=== PATIENT | female | born 1990 | race Caucasian/White ===

== ENCOUNTER 2020-03-12 16:35 | Emergency (ER) | payer MEDICAID ==
[~2020-03-12] VITALS: Ht 154.9 cm; Wt 86.2 kg
[2020-03-12 16:42] VITALS: BP_SYST 118
[2020-03-12] MEDS ORDERED: fentaNYL CITRATE/PF 100 MCG/2 ML AMP IM ONE (17:30)
--- NOTE | 2020-03-12 17:30 | NUR ---
pt to room 5, placed in [facility].
--- NOTE | 2020-03-12 17:32 | NUR ---
LINDSEY Portillo at bedside examining patient.
--- NOTE | 2020-03-12 17:38 | NUR ---
Pt in [facility] with side rails up. C/O severe pain to lower back. Medicated as ordered. Boyfriend will come and drive patient home, per pt.
[2020-03-12] MEDS ORDERED: KETOROLAC TROMETHAMINE 30 MG VIAL IM ONE (18:15)
[2020-03-12 18:39] VITALS: BP_SYST 118
--- NOTE | 2020-03-12 18:39 | NUR ---
Patient given written and verbal discharge instructions and verbalizes understanding. ER MD discussed with patient the results and treatment provided. Patient in stable condition. ID arm band removed. Patient educated on pain management and to follow up with PMD. Pain Scale 2/10. Opportunity for questions provided and answered. Medication side effect fact sheet provided.
== END 2020-03-12 18:39 | disposition home or self-care (01) ==
LOC: SED 16:35
DX: G89.29 Other chronic pain (principal); M54.5 Low back pain; Z88.2 Allergy status to sulfonamides
CPT/HCPCS: 96372; 99284; J1885; J3010

== ENCOUNTER 2020-07-29 13:34 | Emergency (ER) | payer MEDICAID ==
[~2020-07-29] VITALS: Ht 157.5 cm; Wt 84.8 kg
[2020-07-29 13:53] VITALS: BP_SYST 128
[2020-07-29] MEDS ORDERED: KETOROLAC TROMETHAMINE 60 MG/2 ML VIAL IM ONE ×2 (14:59→15:00)
[2020-07-29] MEDS ORDERED: HYDROcodone/ACETAMIN 5-325 MG TAB (NORCO/ VICODIN) PO ONE (15:00)
[2020-07-29] MEDS ORDERED: IBUP-1969 PO (15:47)
[2020-07-29 15:57] VITALS: BP_SYST 120
[2020-07-30] MEDS ORDERED: LIDOCAINE PATCH 5% 1 EA TP SCH (09:00)
== END 2020-07-29 15:53 | disposition home or self-care (01) ==
LOC: SED 13:34
DX: S39.012A Strain of muscle, fascia and tendon of lower back, initial encounter (principal); Z88.2 Allergy status to sulfonamides; X50.9XXA Other and unspecified overexertion or strenuous movements or postures, initial encounter; Y93.89 Activity, other specified; Y92.89 Other specified places as the place of occurrence of the external cause; Y99.8 Other external cause status
CPT/HCPCS: 96372; 99283; J1885

== ENCOUNTER 2022-06-27 15:09 | Emergency (ER) | payer OTHER, MEDICAID ==
[~2022-06-27] VITALS: Ht 157.5 cm; Wt 92.1 kg
[~2022-06-27 15:09] MED LIST: IBUP-1969 PO
[2022-06-27 15:10] VITALS: BP_SYST 106
--- NOTE | 2022-06-27 15:15 | NUR ---
Patient triaged and placed in waiting room. VSS and patient appears in no acute distress at this time. Accompanied by SELF, awaiting available bed, and MD notified of need for MSE.
[2022-06-27] MEDS ORDERED: LITH300C2 PO (15:28)
[2022-06-27] MEDS ORDERED: NALT1TAB PO (15:28)
[2022-06-27] MEDS ORDERED: RISP0.5T5 PO (15:28)
[2022-06-27] MEDS ORDERED: LAMO150T2 PO (15:28)
--- NOTE | 2022-06-27 15:50 | NUR ---
DR. FREED EXAMINING PT
[2022-06-27 17:04] LABS: BASOPHILS # (AUTO) 0.1 K/uL (0.0-0.2); BASOPHILS % (AUTO) 0.5 % (0.0-2.0); EOSINOPHILS # (AUTO) 0.3 K/uL (0.0-0.4); EOSINOPHILS % (AUTO) 2.7 % (0.0-4.0); HEMATOCRIT 40.4 % (36-48); HEMOGLOBIN 13.2 g/dL (12.0-16.0); LYMPHOCYTES # (AUTO) 3.4 K/uL (1.0-5.5); LYMPHOCYTES % (AUTO) 32.9 % (20.5-51.5); MEAN CORPUSCULAR HEMOGLOBIN 28 pg (27-31); MEAN CORPUSCULAR HGB CONC 33 % (32-36); MEAN CORPUSCULAR VOLUME 86 fL (79.0-98.0); MONOCYTES # (AUTO) 0.7 K/uL (0.0-1.0); MONOCYTES % (AUTO) 7.2 % (1.7-9.3); NEUTROPHILS # (AUTO) 5.8 K/uL (1.8-7.7); NEUTROPHILS % (AUTO) 56.7 % (40.0-70.0); PLATELET COUNT (AUTO) 270 K/uL (130-430); RED BLOOD CELL COUNT(AUTO) 4.68 MIL/uL (4.2-6.2); RED CELL DISTRIBUTION WIDTH 13.7 % (9.0-15.0); WHITE BLOOD COUNT (AUTO) 10.2 K/uL (4.8-10.8)
[2022-06-27 17:23] LABS: CALCIUM 9.4 mg/dL (8.4-11.0); CREATININE 0.78 mg/dL (0.55-1.30)
[2022-06-27 17:28] LABS: ALBUMIN 3.3 g/dL (3.4-4.8); TOTAL BILIRUBIN 0.2 mg/dL (0.0-1.0)
[2022-06-27] MEDS ORDERED: ONDA-8 TL (17:59)
[2022-06-27 18:06] VITALS: BP_SYST 106
--- NOTE | 2022-06-27 18:07 | NUR ---
Patient given written and verbal discharge instructions and verbalizes understanding. ER MD discussed with patient the results and treatment provided. Patient in stable condition. ID arm band removed. Rx of ZOFRAN given. Patient educated on pain management and to follow up with PMD. Pain Scale 0/10. Opportunity for questions provided and answered. Medication side effect fact sheet provided.
[2022-06-27 22:15] LABS: LITHIUM 0.49 mEq/L (0.50-1.0)
== END 2022-06-27 18:06 | disposition home or self-care (01) ==
LOC: SED 15:09
DX: R11.0 Nausea (principal); Z88.2 Allergy status to sulfonamides; Z79.899 Other long term (current) drug therapy
CPT/HCPCS: 36415; 80053; 80178; 85025; 99283

== ENCOUNTER 2022-08-16 10:37 | Emergency (ER) | payer OTHER, MEDICAID ==
[~2022-08-16] VITALS: Ht 157.5 cm; Wt 86.2 kg
[~2022-08-16 10:37] MED LIST changes: +LAMO150T2 PO; +LITH300C2 PO; +NALT1TAB PO; +ONDA-8 TL; +RISP0.5T5 PO
[2022-08-16 10:51] VITALS: BP_SYST 119
--- NOTE | 2022-08-16 11:26 | NUR ---
RECEIVED PT FROM SANJEEV MEDEIROS. PT HAS C/O BACK/NECK , WHICH HAS INCREASED SINCE EXERCIING TODAY. PT IS AAOX4. ON R/A. NORMAL S1S2. DENIES N/V/D/C. SKIN CDI, WARM. PAIN\\\
[2022-08-16] MEDS ORDERED: IBUPROFEN 600 MG TABLET PO ONE (11:30)
--- NOTE | 2022-08-16 11:32 | NUR ---
DR. PRADHAN AT BEDSIDE TO ASSESS PT.
--- NOTE | 2022-08-16 11:56 | NUR ---
ENDORSED PT TO SANJEEV MCNEAL.
--- NOTE | 2022-08-16 12:05 | NUR ---
PT MEDICATED PER MD ORDER.
--- NOTE | 2022-08-16 12:31 | NUR ---
Pt notes relief from pain medication from 10 to 7 in relief. Pt states upon inhalation pain to lower back region is felt. Notified .
[2022-08-16] MEDS ORDERED: NAPR-688 PO (12:36)
[2022-08-16] MEDS ORDERED: TRAM50TA2 PO (12:36)
--- NOTE | 2022-08-16 12:56 | NUR ---
Patient given written and verbal discharge instructions and verbalizes understanding. ER MD discussed with patient the results and treatment provided. Patient in stable condition. ID arm band removed. Patient educated on pain management and to follow up with PMD. Opportunity for questions provided and answered. Medication side effect fact sheet provided.
[2022-08-16 12:58] VITALS: BP_SYST 119
== END 2022-08-16 12:58 | disposition home or self-care (01) ==
LOC: SED 10:37
DX: S29.012A Strain of muscle and tendon of back wall of thorax, initial encounter (principal); Z88.2 Allergy status to sulfonamides; Z79.899 Other long term (current) drug therapy; X50.0XXA Overexertion from strenuous movement or load, initial encounter; Y93.B9 Activity, other involving muscle strengthening exercises; Y92.89 Other specified places as the place of occurrence of the external cause; Y99.8 Other external cause status
CPT/HCPCS: 71045; 72072-TC; 99284